=== PATIENT | male | born 1995 | race American Indian/Alaskan Native ===

== ENCOUNTER 2017-08-19 05:44 | Inpatient (IN) | payer OTHER ==
[2017-08-19 07:08] LABS: Alanine Aminotransferase 14 units/L (7-56); Albumin 4.8 g/dL (3.9-5); BUN/Creatinine Ratio 11; Blood Urea Nitrogen 9 mg/dL (9-20); Calcium 9.7 mg/dL (8.4-10.2); Hemolysis Index 8
[2017-08-19 08:03] LABS: Basophils # (Auto) 0.1 K/mm3 (0.0-0.1); Basophils % (Auto) 0.7 % (0.0-1.8); Eosinophils % (Auto) 0.1 % (0.0-4.3); Hematocrit 41.8 % (35.5-45.6); Hemoglobin 13.4 gm/dl (11.8-15.2); Lymphocytes # (Auto) 0.7 K/mm3 (1.2-5.4); Lymphocytes % (Auto) 6.1 % (13.4-35.0); Mean Corpuscular HGB Conc 32 % (32-34); Mean Corpuscular Hemoglobin 27 pg (28-32); Mean Corpuscular Volume 86 fl (84-94); Monocytes # (Auto) 0.5 K/mm3 (0.0-0.8); Monocytes % (Auto) 4.5 % (0.0-7.3); Platelet Count 260 K/mm3 (140-440); Red Blood Count 4.88 M/mm3 (3.65-5.03); Red Cell Distribution Width 12.5 % (13.2-15.2)
--- NOTE | 2017-08-19 11:11 | XRay Report ---
CHEST ONE VIEW INDICATION: Chest pain. COMPARISON: 07/23/2011. FINDINGS: Portable, single, frontal chest radiograph demonstrates normal cardiomediastinal silhouette. Clear lungs. Unremarkable bones. Extrinsic EKG leads. CONCLUSION: No acute disease in the chest. Thank you for the opportunity to participate in this patient's care.
[2017-08-19 11:25] LABS: Bilirubin,Urine NEG (Negative); Blood,Urine NEG (Negative); Color,Urine Yellow (Yellow); Mucus,Urine FEW /HPF; Protein,Urine <15 mg/dL mg/dL (Negative)
[2017-08-19 11:33] LABS: Amphetamine Screen,Urine PRESUMPTIVE NEGATIVE; Benzodiazepines Screen,Urine PRESUMPTIVE NEGATIVE; Cannabinoid Screen,Urine PRESUMPTIVE NEGATIVE; Methadone Screen,Urine PRESUMPTIVE NEGATIVE; Opiate Screen,Urine PRESUMPTIVE NEGATIVE
[2017-08-19 11:48] LABS: Cocaine Screen,Urine PRESUMPTIVE POSITIVE
--- NOTE | 2017-08-19 12:20 | Emergency Department Report ---
ED Chest Pain HPI - General Chief Complaint: Chest Pain Stated Complaint: CP Time Seen by Provider: 08/19/17 10:16 Source: family, EMS Mode of arrival: Wheelchair Limitations: Altered Mental Status - History of Present Illness MD Complaint: chest pain -: Sudden, This morning Onset: other (Started after snorting Cocaine.) Pain Location: substernal Pain Radiation: none Severity: severe Severity scale (0 -10): 8 Quality: heaviness, sharp Consistency: constant Improves With: nothing Worsens With: nothing re: denies: nausea, vomting Treatments Prior to Arrival: none Aspirin use within the Past 7 Days: (0) No - Related Data On Oral Contraceptives: No Allergies Allergy/AdvReac Type Severity Reaction Status Date / Time No Known Allergies Allergy Unverified 08/19/17 06:00 Heart Score - HEART Score History: Moderately suspicious EKG: Non-specific Age: < 45 Risk factors: No known risk factors Troponin: 1-3x normal limit HEART Score: 3 - Critical Actions Critical Actions: 0-3 pts:0.9-1.7%risk of adverse cardiac event.Candidate for discharge ED Review of Systems ROS: Stated complaint: CP Other details as noted in HPI Comment: All other systems reviewed and negative Constitutional: denies: chills, fever Eyes: denies: vision change ENT: denies: ear pain Respiratory: denies: cough, shortness of breath Cardiovascular: chest pain, palpitations Endocrine: no symptoms reported Gastrointestinal: denies: abdominal pain, nausea, vomiting, diarrhea Genitourinary: denies: urgency, dysuria, frequency Musculoskeletal: denies: back pain, joint swelling Skin: denies: rash, lesions, change in color Neurological: denies: headache, weakness, numbness, paresthesias Psychiatric: denies: anxiety, auditory hallucinations Hematological/Lymphatic: denies: easy bleeding, easy bruising ED Past Medical Hx - Past Medical History Previous Medical History?: Yes Additional medical history: pancreatitis - Surgical History Past Surgical History?: No - Social History Smoking Status: Never Smoker Substance Use Type: Cocaine ED Physical Exam - General Limitations: No Limitations General appearance: alert, in no apparent distress - Head Head exam: Present: atraumatic, normocephalic, normal inspection - Eye Eye exam: Present: normal appearance, PERRL, EOMI Pupils: Present: normal accommodation - ENT ENT exam: Present: normal exam, normal orophraynx, mucous membranes moist - Neck Neck exam: Present: normal inspection, full ROM. Absent: tenderness - Respiratory Respiratory exam: Present: normal lung sounds bilaterally. Absent: respiratory distress, wheezes, rhonchi - Cardiovascular Cardiovascular Exam: Present: regular rate, normal rhythm, normal heart sounds - GI/Abdominal GI/Abdominal exam: Present: soft, normal bowel sounds. Absent: tenderness, guarding - Extremities Exam Extremities exam: Present: normal inspection, full ROM, normal capillary refill - Back Exam Back exam: Present: normal inspection, full ROM. Absent: tenderness, vertebral tenderness - Neurological Exam Neurological exam: Present: alert, oriented X3, CN II-XII intact - Psychiatric Psychiatric exam: Present: normal affect, normal mood - Skin Skin exam: Present: warm, dry, intact, normal color. Absent: rash ED Course Vital Signs 08/19/17 08/19/17 08/19/17 05:52 05:56 06:00 Temperature 99.4 F Pulse Rate 125 H 105 H 85 Respiratory 30 H 22 11 L Rate Blood Pressure 168/85 140/78 Blood Pressure [Left] O2 Sat by Pulse 96 Oximetry 08/19/17 08/19/17 08/19/17 06:16 06:30 06:46 Temperature Pulse Rate 81 112 H 82 Respiratory 16 17 13 Rate Blood Pressure 143/78 143/78 143/78 Blood Pressure [Left] O2 Sat by Pulse Oximetry 08/19/17 08/19/17 08/19/17 07:00 07:15 07:30 Temperature Pulse Rate 78 74 79 Respiratory 9 L 11 L 11 L Rate Blood Pressure 118/62 105/64 92/56 Blood Pressure [Left] O2 Sat by Pulse 100 Oximetry 08/19/17 08/19/17 08/19/17 07:46 08:00 08:15 Temperature Pulse Rate 67 63 67 Respiratory 13 14 12 Rate Blood Pressure 126/54 122/68 117/64 Blood Pressure [Left] O2 Sat by Pulse 100 100 100 Oximetry 08/19/17 08/19/17 08/19/17 08:30 08:46 09:00 Temperature Pulse Rate 81 68 64 Respiratory 15 12 11 L Rate Blood Pressure 124/65 121/61 112/59 Blood Pressure [Left] O2 Sat by Pulse 99 100 100 Oximetry 08/19/17 08/19/17 08/19/17 09:15 09:30 09:46 Temperature Pulse Rate 68 63 84 Respiratory 13 11 L 10 L Rate Blood Pressure 113/55 118/56 120/49 Blood Pressure [Left] O2 Sat by Pulse 100 100 100 Oximetry 08/19/17 08/19/17 08/19/17 10:00 10:15 10:30 Temperature Pulse Rate 79 72 68 Respiratory 15 12 12 Rate Blood Pressure 127/61 124/54 104/59 Blood Pressure [Left] O2 Sat by Pulse 100 100 100 Oximetry 08/19/17 12:14 Temperature Pulse Rate 82 Respiratory 16 Rate Blood Pressure Blood Pressure 111/75 [Left] O2 Sat by Pulse 98 Oximetry - Reevaluation(s) Reevaluation #1: 08/19/17 13:08 I consulted the inspector agricultural commodities on-call Dr Greene He recommends admitting the patient to the hospitalist for further evaluation and management. He also said he will come and evaluate the patient in the emergency room. I consulted the hospitalist convex grinder operator Dr. Kerr. We will admit the patient to the hospital for further evaluation and management. PACO score - Paco Score Age > 65: (0) No Aspirin use within the Past 7 Days: (0) No 3 or more CAD Risk Factors: (1) Yes 2 or more Angina events in past 24 hrs: (0) No Known CAD with more than 50% Stenosis: (0) No Elevated Cardiac Markers: (0) No ST Deviation Greater than 0.5mm: (0) No PACO Score: 1 ED Medical Decision Making - Lab Data Result diagrams: 08/19/17 06:20 08/19/17 06:20 - EKG Data -: EKG Interpreted by Sd EKG shows normal: sinus rhythm Rate: normal - EKG Data When compared to previous EKG there are: previous EKG unavailable Interpretation: nonspecific ST-T wave vince, LVH, other (Early Repolarization.) - Radiology Data Radiology results: report reviewed, image reviewed - Medical Decision Making Cocaine Chest Pain. Critical care attestation.: If time is entered above; I have spent that time in minutes in the direct care of this critically ill patient, excluding procedure time. ED Disposition Clinical Impression: Cocaine abuse Chest pain Qualifiers: Chest pain type: unspecified Qualified Code(s): R07.9 - Chest pain, unspecified Disposition: DC-09 OP ADMIT IP TO THIS HOSP Is pt being admited?: Yes Does the pt Need Aspirin: Yes Condition: Stable Instructions: Chest Pain (ED) Referrals: PRIMARY CARE,MD [Primary Care Provider] - 3-5 Days
[2017-08-19] MEDS ORDERED: ASPIRIN PO ONE (12:21)
[2017-08-19] MEDS ORDERED: NACL 0.9% 1000 ML 1,000 ML IV ONE (12:53)
--- NOTE | 2017-08-19 13:13 | Consultation ---
History of Present Illness Consult date: 08/19/17 Requesting physician: DIOMEDES WAN Consult reason: chest pain History of present illness: The pt is a 22 YO male with a past medical history significant for acute pancreatitis and tobacco use. He is previously unknown to our practice. He presented with complaints of chest pain since 3AM this morning. He reports that he tried cocaine this AM (inhaled nasally) for the first time and immediately after inhaling the cocaine, he developed chest pain. He describes his chest pain as a constant left sided squeezing pain which was associated with bilateral hand numbness, bilateral feet numbness, SOB, nausea and a bout of vomiting. On evaluation, he reports that the chest pain is still present. He denies any palpitations, diaphoresis, dizziness or syncope. ECG demonstrates NSR with early repolarization, Jasiel are negative for AMI x 2 sets. Past History Past Medical History: other (acute pancreatitis as a child ) Past Surgical History: No surgical history Social history: lives with family, smoking (tobacco ), other (cocaine use). denies: alcohol abuse Family history: diabetes Medications and Allergies Allergies Allergy/AdvReac Type Severity Reaction Status Date / Time No Known Allergies Allergy Unverified 08/19/17 06:00 Home Medications Medication Instructions Recorded Confirmed Last Taken Type No Known Home Medications [No 08/19/17 08/19/17 Unknown History Reported Home Medications] Active Meds: Active Medications Sodium Chloride (Nacl 0.9% 1000 Ml) 1,000 mls @ 999 mls/hr IV BOLUS ONE Stop: 08/19/17 13:53 Review of Systems Constitutional: no weight loss, no weight gain, no fever, no chills, no sweats Ears, nose, mouth and throat: no ear pain, no nose pain, no sinus pressure, no sinus pain Cardiovascular: chest pain, shortness of breath, no orthopnea, no rapid/ irregular heart beat, no edema, no syncope, no lightheadedness, no high blood pressure, no leg edema, no decreased exercise tolerance Respiratory: shortness of breath, no cough, no congestion, no wheezing, no pain on inspiration Gastrointestinal: nausea, vomiting, no abdominal pain, no diarrhea, no constipation, no change in bowel habits Genitourinary Male: no dysuria, no hematuria, no flank pain, no discharge, no urinary frequency, no urinary hesitancy Musculoskeletal: no neck stiffness, no neck pain, no shooting arm pain, no arm numbness/tingling, no low back pain, no shooting leg pain Integumentary: no rash, no pruritis, no redness, no sores, no wounds Neurological: no head injury, no paralysis, no weakness, no parathesias, no tingling, no seizures, no syncope Psychiatric: no anxiety Endocrine: no cold intolerance, no heat intolerance Hematologic/Lymphatic: no easy bruising, no easy bleeding, no lymphadenopathy Allergic/Immunologic: no urticaria, no wheezing, no persistent infections Physical Examination Vital Signs Pulse Resp 125 H 30 H 08/19/17 05:52 08/19/17 05:52 General appearance: no acute distress HEENT: Positive: PERRL, Normocephaly, Mucus Membranes Moist Neck: Positive: neck supple, trachea midline Cardiac: Positive: Reg Rate and Rhythm, S1/S2 Lungs: Positive: clear to auscultation Neuro: Positive: Grossly Intact, Cranial Nerve 2-12 Intact Abdomen: Positive: Soft. Negative: Tender Skin: Positive: Clear. Negative: Rash, Wound Musculoskeletal: No Fluid Collection, No Pain, Normal Range of Motion Extremities: Absent: edema Results 08/19/17 06:20 08/19/17 06:20 Cardiac Enzymes 08/19/17 Range/Units 06:20 AST 15 (5-40) units/L CBC 08/19/17 Range/Units 06:20 WBC 10.8 (4.5-11.0) K/mm3 RBC 4.88 (3.65-5.03) M/mm3 Hgb 13.4 (11.8-15.2) gm/dl Hct 41.8 (35.5-45.6) % Plt Count 260 (140-440) K/mm3 Lymph # 0.7 L (1.2-5.4) K/mm3 [place] # 0.5 (0.0-0.8) K/mm3 Eos # 0.0 (0.0-0.4) K/mm3 Baso # 0.1 (0.0-0.1) K/mm3 Comprehensive Metabolic Panel 08/19/17 Range/Units 06:20 Sodium 138 (137-145) mmol/L Potassium 3.9 (3.6-5.0) mmol/L Chloride 98.1 (98-107) mmol/L Carbon Dioxide 22 (22-30) mmol/L BUN 9 (9-20) mg/dL Creatinine 0.8 (0.8-1.5) mg/dL Glucose 103 H (75-100) mg/dL Calcium 9.7 (8.4-10.2) mg/dL AST 15 (5-40) units/L ALT 14 (7-56) units/L Alkaline Phosphatase 70 (35-129) units/L Total Protein 7.1 (6.3-8.2) g/dL Albumin 4.8 (3.9-5) g/dL - Imaging and Cardiology Echo: pending EKG: report reviewed, image reviewed EKG interpretations - Telemetry EKG Rhythm: Sinus Rhythm - EKG Sinus rhythms and dysrhythmias: sinus rhythm Repolarization changes or abnormalities: early repolarization (normal variant) Assessment and Plan Assessment: Chest pain, atypical / ? coronary vasospasm secondary to cocaine use - Jasiel negative for AMI Abnormal ECG - early repolarization Tobacco use / cocaine use - cessation encouraged Plan: Initiate low dose cardizem BID. Hold for HR <60 and/or SBP <100. Obtain echo. Cont to monitor on telemetry. Assessment and plan reviewed with pt and pt's mother. The patient has been seen in conjunction with Dr. Espitia who agrees with the assessment and plan of care.
[2017-08-19] MEDS: CARDIZEM PO SCH ×2 (18:59→22:44)
--- NOTE | 2017-08-19 20:17 | History and Physical Report ---
History of Present Illness Date of examination: 08/19/17 Date of admission: 08/19/17 13:10 Chief complaint: Chief complaint: Chest pain since a.m. History of present illness: History of Present Illness: The pt is a 22 YO male with a past medical history significant for acute pancreatitis and tobacco use. He is previously unknown to our practice. He presented with complaints of chest pain since 3AM this morning. He reports that he tried cocaine this AM (inhaled nasally) for the first time and immediately after inhaling the cocaine, he developed chest pain. He describes his chest pain as a constant left sided squeezing pain which was associated with bilateral hand numbness, bilateral feet numbness, SOB, nausea and a bout of vomiting. On evaluation, he reports that the chest pain is still present. He denies any palpitations, diaphoresis, dizziness or syncope. ECG demonstrates NSR with early repolarization, Jasiel are negative for AMI x 2 sets. Past History Past Medical History: other (acute pancreatitis as a child ) Past Surgical History: No surgical history Social history: lives with family, smoking (tobacco ), other (cocaine use). denies: alcohol abuse Family history: diabetes Medications and Allergies Allergies Allergy/AdvReac Type Severity Reaction Status Date / Time No Known Allergies Allergy Unverified 08/19/17 06:00 Home Medications Medication Instructions Recorded Confirmed Last Taken Type No Known Home Medications [No 08/19/17 08/19/17 Unknown History Reported Home Medications] Active Meds: Active Medications Sodium Chloride (Nacl 0.9% 1000 Ml) 1,000 mls @ 999 mls/hr IV BOLUS ONE Stop: 08/19/17 13:53 Review of Systems Constitutional: no weight loss, no weight gain, no fever, no chills, no sweats Ears, nose, mouth and throat: no ear pain, no nose pain, no sinus pressure, no sinus pain Cardiovascular: chest pain, shortness of breath, no orthopnea, no rapid/ irregular heart beat, no edema, no syncope, no lightheadedness, no high blood pressure, no leg edema, no decreased exercise tolerance Respiratory: shortness of breath, no cough, no congestion, no wheezing, no pain on inspiration Gastrointestinal: nausea, vomiting, no abdominal pain, no diarrhea, no constipation, no change in bowel habits Genitourinary Male: no dysuria, no hematuria, no flank pain, no discharge, no urinary frequency, no urinary hesitancy Musculoskeletal: no neck stiffness, no neck pain, no shooting arm pain, no arm numbness/tingling, no low back pain, no shooting leg pain Integumentary: no rash, no pruritis, no redness, no sores, no wounds Neurological: no head injury, no paralysis, no weakness, no parathesias, no tingling, no seizures, no syncope Psychiatric: no anxiety Endocrine: no cold intolerance, no heat intolerance Hematologic/Lymphatic: no easy bruising, no easy bleeding, no lymphadenopathy Allergic/Immunologic: no urticaria, no wheezing, no persistent infections Past History Past Medical History: other (acute pancreatitis as a child ) Past Surgical History: No surgical history Social history: lives with family, smoking (tobacco ), other (cocaine use). denies: alcohol abuse Family history: diabetes Medications and Allergies Allergies Allergy/AdvReac Type Severity Reaction Status Date / Time No Known Allergies Allergy Unverified 08/19/17 06:00 Home Medications Medication Instructions Recorded Confirmed Last Taken Type No Known Home Medications [No 08/19/17 08/19/17 Unknown History Reported Home Medications] Active Meds: Active Medications Diltiazem HCl (Cardizem) 30 mg PO BID PEYTON Last Admin: 08/19/17 18:59 Dose: 30 mg Influenza Virus Vaccine Quadrival (Fluarix Quad [id number](36 Mos+) 0.5 ml IM .ONCE ONE Stop: 08/20/17 12:01 Exam - Physical Exam Narrative exam: Lying in bed comfortably - Constitutional Vitals: Temp Pulse Resp BP Pulse Ox 98.6 F 86 18 131/71 98 08/19/17 15:11 08/19/17 18:59 08/19/17 15:11 08/19/17 18:59 08/19/17 15:11 General appearance: Present: no acute distress, well-nourished - EENT Eyes: Present: PERRL ENT: hearing intact, clear oral mucosa - Neck Neck: Present: supple, normal ROM - Respiratory Respiratory effort: normal Respiratory: bilateral: CTA - Cardiovascular Heart rate: 78 Rhythm: regular Heart Sounds: Present: S1 & S2. Absent: rub, click - Extremities Extremities: no ischemia, pulses intact, pulses symmetrical, No edema Peripheral Pulses: within normal limits - Abdominal General gastrointestinal: Present: soft, non-tender, non-distended, normal bowel sounds Male genitourinary: Present: normal - Rectal Rectal Exam: deferred - Integumentary Integumentary: Present: clear, warm, dry - Musculoskeletal Musculoskeletal: gait normal, strength equal bilaterally - Psychiatric Psychiatric: appropriate mood/affect, intact judgment & insight - Neurologic Neurologic: CNII-XII intact, moves all extremities - Allied Health Allied health notes reviewed: nursing, case management Results - Labs CBC & Chem 7: 08/19/17 06:20 08/19/17 06:20 Labs: Laboratory Last Values WBC 10.8 K/mm3 (4.5-11.0) 08/19/17 06:20 RBC 4.88 M/mm3 (3.65-5.03) 08/19/17 06:20 Hgb 13.4 gm/dl (11.8-15.2) 08/19/17 06:20 Hct 41.8 % (35.5-45.6) 08/19/17 06:20 MCV 86 fl (84-94) 08/19/17 06:20 MCH 27 pg (28-32) L 08/19/17 06:20 MCHC 32 % (32-34) 08/19/17 06:20 RDW 12.5 % (13.2-15.2) L 08/19/17 06:20 Plt Count 260 K/mm3 (140-440) 08/19/17 06:20 Lymph % (Auto) 6.1 % (13.4-35.0) L 08/19/17 06:20 [place] % (Auto) 4.5 % (0.0-7.3) 08/19/17 06:20 Eos % (Auto) 0.1 % (0.0-4.3) 08/19/17 06:20 Baso % (Auto) 0.7 % (0.0-1.8) 08/19/17 06:20 Lymph # 0.7 K/mm3 (1.2-5.4) L 08/19/17 06:20 [place] # 0.5 K/mm3 (0.0-0.8) 08/19/17 06:20 Eos # 0.0 K/mm3 (0.0-0.4) 08/19/17 06:20 Baso # 0.1 K/mm3 (0.0-0.1) 08/19/17 06:20 Seg Neutrophils % 88.6 % (40.0-70.0) H 08/19/17 06:20 Seg Neutrophils # 9.6 K/mm3 (1.8-7.7) H 08/19/17 06:20 Sodium 138 mmol/L (137-145) 08/19/17 06:20 Potassium 3.9 mmol/L (3.6-5.0) 08/19/17 06:20 Chloride 98.1 mmol/L (98-107) 08/19/17 06:20 Carbon Dioxide 22 mmol/L (22-30) 08/19/17 06:20 Anion Gap 22 mmol/L 08/19/17 06:20 BUN 9 mg/dL (9-20) 08/19/17 06:20 Creatinine 0.8 mg/dL (0.8-1.5) 08/19/17 06:20 Estimated GFR > 60 ml/min 08/19/17 06:20 BUN/Creatinine Ratio 11 % 08/19/17 06:20 Glucose 103 mg/dL (75-100) H 08/19/17 06:20 Calcium 9.7 mg/dL (8.4-10.2) 08/19/17 06:20 Total Bilirubin 1.80 mg/dL (0.1-1.2) H 08/19/17 06:20 AST 15 units/L (5-40) 08/19/17 06:20 ALT 14 units/L (7-56) 08/19/17 06:20 Alkaline Phosphatase 70 units/L (35-129) 08/19/17 06:20 Troponin T < 0.010 ng/mL (0.00-0.029) 08/19/17 11:05 Total Protein 7.1 g/dL (6.3-8.2) 08/19/17 06:20 Albumin 4.8 g/dL (3.9-5) 08/19/17 06:20 Albumin/Globulin Ratio 2.1 % 08/19/17 06:20 Urine Color Yellow (Yellow) 08/19/17 11:00 Urine Turbidity Clear (Clear) 08/19/17 11:00 Urine pH 6.0 (5.0-7.0) 08/19/17 11:00 Ur Specific [place] 1.017 (1.003-1.030) 08/19/17 11:00 Urine Protein <15 mg/dl mg/dL (Negative) 08/19/17 11:00 Urine Glucose (UA) Neg mg/dL (Negative) 08/19/17 11:00 Urine Ketones 20 mg/dL (Negative) 08/19/17 11:00 Urine Blood Neg (Negative) 08/19/17 11:00 Urine Nitrite Neg (Negative) 08/19/17 11:00 Urine Bilirubin Neg (Negative) 08/19/17 11:00 Urine Urobilinogen 2.0 mg/dL (<2.0) 08/19/17 11:00 Ur Leukocyte Esterase Neg (Negative) 08/19/17 11:00 Urine WBC (Auto) 1.0 /HPF (0.0-6.0) 08/19/17 11:00 Urine RBC (Auto) 2.0 /HPF (0.0-6.0) 08/19/17 11:00 Urine Mucus Few /HPF 08/19/17 11:00 Urine Opiates Screen Presumptive negative 08/19/17 11:00 Urine Methadone Screen Presumptive negative 08/19/17 11:00 Ur Barbiturates Screen Presumptive negative 08/19/17 11:00 Ur Phencyclidine Scrn Presumptive negative 08/19/17 11:00 Ur Amphetamines Screen Presumptive negative 08/19/17 11:00 U Benzodiazepines Scrn Presumptive negative 08/19/17 11:00 Urine Cocaine Screen Presumptive positive 08/19/17 11:00 U Marijuana (THC) Screen Presumptive negative 08/19/17 11:00 Drugs of Abuse Note Disclamer 08/19/17 11:00 Short CBC 08/19/17 Range/Units 06:20 WBC 10.8 (4.5-11.0) K/mm3 Hgb 13.4 (11.8-15.2) gm/dl Hct 41.8 (35.5-45.6) % Plt Count 260 (140-440) K/mm3 BMP 08/19/17 06:20 Sodium 138 Potassium 3.9 Chloride 98.1 Carbon Dioxide 22 BUN 9 Creatinine 0.8 Glucose 103 H Calcium 9.7 Cardiac Enzymes 08/19/17 08/19/17 Range/Units 06:20 11:05 Troponin T < 0.010 < 0.010 (0.00-0.029) ng/mL Liver Function 08/19/17 Range/Units 06:20 Total Bilirubin 1.80 H (0.1-1.2) mg/dL AST 15 (5-40) units/L ALT 14 (7-56) units/L Alkaline Phosphatase 70 (35-129) units/L Albumin 4.8 (3.9-5) g/dL Urine 08/19/17 Range/Units 11:00 Urine Color Yellow (Yellow) Urine pH 6.0 (5.0-7.0) Ur Specific [place] 1.017 (1.003-1.030) Urine Protein <15 mg/dl (Negative) mg/dL Urine Glucose (UA) Neg (Negative) mg/dL - Imaging and Cardiology EKG: report reviewed (normal sinus rhythm 70/m) Assessment and Plan Advance Directives: Yes (full code) VTE prophylaxis?: Chemical Plan of care discussed with patient/family: Yes - Patient Problems (1) Chest pain Current Visit: Yes Status: Acute Qualifiers: Chest pain type: unspecified Qualified Code(s): R07.9 - Chest pain, unspecified Plan to address problem: Serial cardiac enzymes and exercise stress test Secondary to vasospasm Patient to avoid cocaine in future (2) Cocaine abuse Current Visit: Yes Status: Acute Plan to address problem: Probable vasospasm--secondary to vasospasm Patient counseled to avoid cocaine in future (3) DVT prophylaxis Current Visit: Yes Status: Acute Plan to address problem: Heparin subcutaneously GI prophylaxis with famotidine
[2017-08-19] MEDS ORDERED: MORPHINE IV PRN (20:24)
[2017-08-19] MEDS ORDERED: PERCOCET 5/325 PO PRN (20:24)
[2017-08-19] MEDS ORDERED: SODIUM CHLORIDE FLUSH SYRINGE 10 ML IV PRN (20:24)
[2017-08-19] MEDS ORDERED: TYLENOL PO PRN (20:24)
[2017-08-19] MEDS ORDERED: ZOFRAN IV PRN (20:24)
[2017-08-19] MEDS ORDERED: AMBIEN PO PRN (20:24)
[2017-08-19] MEDS ORDERED: D5NS 1,000 ML IV SCH (21:00)
[2017-08-19] MEDS: PEPCID PO SCH (22:43)
[2017-08-19] MEDS: SODIUM CHLORIDE FLUSH SYRINGE 10 ML IV SCH (22:44)
[2017-08-20 06:20] LABS: BUN/Creatinine Ratio 11; Blood Urea Nitrogen 9 mg/dL (9-20); Calcium 8.4 mg/dL (8.4-10.2); Hemolysis Index 3
[2017-08-20 06:52] LABS: Hematocrit 39.6 % (35.5-45.6); Hemoglobin 12.6 gm/dl (11.8-15.2); Lymphocytes % (Auto) 39.6 % (13.4-35.0); Mean Corpuscular HGB Conc 32 % (32-34); Mean Corpuscular Hemoglobin 28 pg (28-32); Mean Corpuscular Volume 86 fl (84-94); Mean Platelet Volume 8.4 fl (6-12); Platelet Count 219 K/mm3 (140-440); Red Blood Count 4.59 M/mm3 (3.65-5.03); Red Cell Distribution Width 12.8 % (13.2-15.2)
[2017-08-20 06:53] LABS: Basophils # (Auto) 0.1 K/mm3 (0.0-0.1); Basophils % (Auto) 1.7 % (0.0-1.8); Eosinophils # (Auto) 0.4 K/mm3 (0.0-0.4); Eosinophils % (Auto) 6.6 % (0.0-4.3); Lymphocytes # (Auto) 2.2 K/mm3 (1.2-5.4); Monocytes # (Auto) 0.7 K/mm3 (0.0-0.8)
[2017-08-20] MEDS ORDERED: LEXISCAN IV ONE (08:24)
[2017-08-20] MEDS: PEPCID PO SCH (09:51)
[2017-08-20] MEDS: CARDIZEM PO SCH (09:51)
[2017-08-20] MEDS: SODIUM CHLORIDE FLUSH SYRINGE 10 ML IV SCH (09:53)
[2017-08-20] MEDS ORDERED: Fluarix Quad 2017-2018(36 MOS+ IM ONE (12:00)
--- NOTE | 2017-08-20 14:42 | Progress Note ---
Assessment and Plan He appears stable from a cardiac standpoint to be discharged home. He does not require any cardiac medications. However, he needs to avoid cocaine use. - Patient Problems (1) Chest pain Current Visit: Yes Status: Resolved Qualifiers: Chest pain type: other chest pain Qualified Code(s): R07.89 - Other chest pain; R07.8 - Other chest pain (2) Cocaine abuse Current Visit: Yes Status: Acute Subjective Date of service: 08/20/17 Principal diagnosis: Cocaine induced CP Interval history: He feels fine this morning without any chest pain. He underwent a treadmill exercise stress test which was negative for ischemia without any chest pain. Echocardiogram showed normal LV systolic function with no significant valvular abnormalities. Objective Vital Signs Temp Pulse Resp BP Pulse Ox 08/20/17 13:30 99 08/20/17 09:51 115/68 08/20/17 08:39 98.5 F 69 18 115/68 99 08/20/17 04:30 98.2 F 57 L 16 121/48 97 08/19/17 23:49 61 08/19/17 23:19 98.3 F 80 18 117/57 98 08/19/17 22:44 61 122/87 08/19/17 21:03 20 08/19/17 20:14 98 08/19/17 19:33 98.4 F 69 16 122/45 96 08/19/17 18:59 86 131/71 08/19/17 15:11 98.6 F 86 18 131/71 98 08/19/17 14:51 97 08/19/17 14:42 121/54 - Physical Examination General: No Apparent Distress HEENT: Positive: PERRL, Normocephaly, Mucus Membranes Moist Neck: Positive: neck supple, trachea midline Cardiac: Positive: Reg Rate and Rhythm, S1/S2 Lungs: Positive: clear to auscultation Neuro: Positive: Grossly Intact Abdomen: Positive: Soft, Active Bowel Sounds. Negative: Tender Skin: Positive: Clear. Negative: Rash Musculoskeletal: Normal Range of Motion Extremities: Present: normal. Absent: edema - Labs and Meds CBC 08/20/17 Range/Units 05:42 WBC 5.5 (4.5-11.0) K/mm3 RBC 4.59 (3.65-5.03) M/mm3 Hgb 12.6 (11.8-15.2) gm/dl Hct 39.6 (35.5-45.6) % Plt Count 219 (140-440) K/mm3 Lymph # 2.2 (1.2-5.4) K/mm3 [place] # 0.7 (0.0-0.8) K/mm3 Eos # 0.4 (0.0-0.4) K/mm3 Baso # 0.1 (0.0-0.1) K/mm3 Comprehensive Metabolic Panel 08/20/17 Range/Units 05:42 Sodium 141 (137-145) mmol/L Potassium 3.8 (3.6-5.0) mmol/L Chloride 105.7 (98-107) mmol/L Carbon Dioxide 25 (22-30) mmol/L BUN 9 (9-20) mg/dL Creatinine 0.8 (0.8-1.5) mg/dL Glucose 106 H (75-100) mg/dL Calcium 8.4 (8.4-10.2) mg/dL - Imaging and Cardiology Echo: image reviewed - Telemetry EKG Rhythm: Sinus Rhythm - EKG Sinus rhythms and dysrhythmias: sinus rhythm Repolarization changes or abnormalities: early repolarization (normal variant)
--- NOTE | 2017-08-20 15:03 | Discharge Summary ---
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
[2017-08-20 15:25] VITALS: BP 120/66
== END 2017-08-20 16:27 | disposition home or self-care (01) | DRG 313 ==
LOC: ED 05:44 → 4A 13:10
PROVIDERS: ADMIT Internal Medicine; ATTEND Internal Medicine
DX: R07.89 Other chest pain (principal); Z83.3 Family history of diabetes mellitus; F17.200 Nicotine dependence, unspecified, uncomplicated; Z71.51 Drug abuse counseling and surveillance of drug abuser; Z71.6 Tobacco abuse counseling; F14.188 Cocaine abuse with other cocaine-induced disorder
CPT/HCPCS: 36415; 71045; 80048; 80053; 80307; 81001; 84484; 85025; 90686; 93005; 93010; 93017; 93306; J2785; J7030; J7042

== ENCOUNTER 2017-08-20 21:23 | Emergency (ER) | payer SELFPAY ==
[2017-08-20] MEDS ORDERED: ASPIRIN PO ONE (21:42)
[2017-08-20] MEDS ORDERED: NACL 0.9% 1000 ML 1,000 ML IV ONE (21:57)
[2017-08-20] MEDS ORDERED: BENADRYL IV ONE (22:04)
--- NOTE | 2017-08-20 22:06 | Emergency Department Report ---
ED Chest Pain HPI - General Chief Complaint: Chest Pain Stated Complaint: CHEST PAIN Time Seen by Provider: 08/20/17 21:57 Source: patient, family, old records reviewed Mode of arrival: Wheelchair Limitations: No Limitations - History of Present Illness Initial Comments: 22 yo male with a past medical history of pancreatitis and previous cocaine use presents to hospital complaining of sudden onset of left-sided squeezing chest pain that happened about 30 minutes prior to arrival. Patient was under stress when pain started. He states there was some discourse/arguments in his his family. During episode he began having squeezing chest pain left-sided chest pain rated 8/10 in intensity, palpitations, shortness of breath. Positive left arm paresthesias and rapid breathing also reported. Patient also had several episodes of vomiting. He did admit to little wine intake earlier patient has a history of pancreatitis with unknown cause. He was recently here admitted here yesterday and discharged earlier today for chest pain related to cocaine use. Apparently that was patient's first use of cocaine. Previous medical records reviewed and echocardiogram and stress test during admission were normal. Patient was discharged without any cardiac medications. Patient denies history of PE status DVT, calf tenderness, edema, or recent travel. - Related Data Previous Rx's Medication Instructions Recorded Last Taken Type Ibuprofen [Motrin] 600 mg PO Q8H PRN #30 tablet 08/20/17 Unknown Rx hydrOXYzine PAMOATE [Vistaril] 50 mg PO Q6HR PRN #20 capsule 08/20/17 Unknown Rx Allergies Allergy/AdvReac Type Severity Reaction Status Date / Time No Known Allergies Allergy Unverified 08/19/17 06:00 Heart Score - HEART Score History: Slightly suspicious EKG: Normal Age: < 45 Risk factors: 1-2 risk factors (smoker) Troponin: < normal limit HEART Score: 1 ED Review of Systems ROS: Stated complaint: CHEST PAIN Other details as noted in HPI Comment: All other systems reviewed and negative ED Past Medical Hx - Past Medical History Previous Medical History?: Yes Hx Congestive Heart Failure: No Hx Diabetes: No Hx Asthma: No Hx COPD: No Additional medical history: pancreatitis - Surgical History Past Surgical History?: No - Social History Smoking Status: Current Every Day Smoker - Medications Home Medications: Home Medications Medication Instructions Recorded Confirmed Last Taken Type Ibuprofen [Motrin] 600 mg PO Q8H PRN #30 tablet 08/20/17 Unknown Rx hydrOXYzine PAMOATE [Vistaril] 50 mg PO Q6HR PRN #20 capsule 08/20/17 Unknown Rx ED Physical Exam - General Limitations: No Limitations - Other Other exam information: General: No limitations, patient is alert in no acute distress Head exam: Atraumatic, normocephalic Eyes exam: Normal appearance, pupils equal reactive to light, extraocular movements intact ENT: Moist mucous membrane, normal oropharynx Neck exam: Normal inspection, full range of motion, no meningismus nontender Respiratory exam: Clear to auscultation bilateral, no wheezes, rales, crackles Cardiovascular: Normal rate and rhythm, normal heart sounds, chest wall nontender Abdomen: Soft, nondistended, and nontender, with normal bowel sounds, no rebound, or guarding Extremity: Full range of motion normal inspection no deformity, no calf tenderness or edema Back: Normal Inspection, full range of motion, no tenderness Neurologic: Alert, oriented x3, cranial nerves intact, no motor or sensory deficit Psychiatric: normal affect, normal mood Skin: Warm, dry, intact ED Course Vital Signs 08/20/17 08/20/17 08/20/17 21:26 22:00 22:10 Temperature 98.4 F 99.2 F Pulse Rate 81 81 78 Respiratory 16 15 18 Rate Blood Pressure 76/55 139/76 Blood Pressure 139/76 [Right] O2 Sat by Pulse 100 97 98 Oximetry 08/20/17 08/20/17 08/20/17 22:16 22:30 22:46 Temperature Pulse Rate 68 68 59 L Respiratory 17 15 15 Rate Blood Pressure 112/76 137/80 121/80 Blood Pressure [Right] O2 Sat by Pulse 99 97 93 Oximetry 08/20/17 23:00 Temperature Pulse Rate 62 Respiratory 18 Rate Blood Pressure 130/89 Blood Pressure [Right] O2 Sat by Pulse 100 Oximetry - Reevaluation(s) Reevaluation #1: 08/20/17 22:08 Initial triage BP was in the 70s per repeat BP without any intervention showed a systolic pressure of 130's so I question the validity of the initial blood pressure. 1 L normal saline initiated 08/20/17 23:45 sbp remained normal without repeat hypotension PACO score - Paco Score Age > 65: (0) No Aspirin use within the Past 7 Days: (0) No 3 or more CAD Risk Factors: (0) No 2 or more Angina events in past 24 hrs: (0) No Known CAD with more than 50% Stenosis: (0) No Elevated Cardiac Markers: (0) No ST Deviation Greater than 0.5mm: (0) No PACO Score: 0 ED Medical Decision Making - Lab Data Result diagrams: 08/20/17 21:55 08/20/17 21:55 Lab Results 08/20/17 08/20/17 08/20/17 Range/Units 21:55 21:55 21:55 WBC 7.4 (4.5-11.0) K/mm3 RBC 5.02 (3.65-5.03) M/mm3 Hgb 14.2 (11.8-15.2) gm/dl Hct 42.9 (35.5-45.6) % MCV 86 (84-94) fl MCH 28 (28-32) pg MCHC 33 (32-34) % RDW 12.7 L (13.2-15.2) % Plt Count 267 (140-440) K/mm3 Lymph % (Auto) 23.2 (13.4-35.0) % [place] % (Auto) 7.8 H (0.0-7.3) % Eos % (Auto) 4.3 (0.0-4.3) % Baso % (Auto) 1.0 (0.0-1.8) % Lymph # 1.7 (1.2-5.4) K/mm3 [place] # 0.6 (0.0-0.8) K/mm3 Eos # 0.3 (0.0-0.4) K/mm3 Baso # 0.1 (0.0-0.1) K/mm3 Add Manual Diff Complete Seg Neutrophils % 63.7 (40.0-70.0) % Seg Neutrophils # 4.7 (1.8-7.7) K/mm3 D-Dimer (0-234) ng/mlDDU Sodium 140 (137-145) mmol/L Potassium 4.3 (3.6-5.0) mmol/L Chloride 99.8 (98-107) mmol/L Carbon Dioxide 27 (22-30) mmol/L Anion Gap 18 mmol/L BUN 6 L (9-20) mg/dL Creatinine 0.8 (0.8-1.5) mg/dL Estimated GFR > 60 ml/min BUN/Creatinine Ratio 8 % Glucose 83 (75-100) mg/dL Calcium 9.8 D (8.4-10.2) mg/dL Total Creatine Kinase (55-170) units/L CK-MB (CK-2) (0.0-4.0) ng/mL CK-MB (CK-2) Rel Index (0-4) Troponin T < 0.010 (0.00-0.029) ng/mL Urine Color (Yellow) Urine Turbidity (Clear) Urine pH (5.0-7.0) Ur Specific [place] (1.003-1.030) Urine Protein (Negative) mg/dL Urine Glucose (UA) (Negative) mg/dL Urine Ketones (Negative) mg/dL Urine Blood (Negative) Urine Nitrite (Negative) Urine Bilirubin (Negative) Urine Urobilinogen (<2.0) mg/dL Ur Leukocyte Esterase (Negative) Urine WBC (Auto) (0.0-6.0) /HPF Urine RBC (Auto) (0.0-6.0) /HPF U Epithel Cells (Auto) (0-13.0) /HPF Urine Mucus /HPF Salicylates < 0.3 L (2.8-20.0) mg/dL Urine Opiates Screen Urine Methadone Screen Acetaminophen (10.0-30.0) ug/mL Ur Barbiturates Screen Ur Phencyclidine Scrn Ur Amphetamines Screen U Benzodiazepines Scrn U Marijuana (THC) Screen Plasma/Serum Alcohol (0-0.07) % 08/20/17 08/20/17 08/20/17 Range/Units 21:55 21:55 21:58 WBC (4.5-11.0) K/mm3 RBC (3.65-5.03) M/mm3 Hgb (11.8-15.2) gm/dl Hct (35.5-45.6) % MCV (84-94) fl MCH (28-32) pg MCHC (32-34) % RDW (13.2-15.2) % Plt Count (140-440) K/mm3 Lymph % (Auto) (13.4-35.0) % [place] % (Auto) (0.0-7.3) % Eos % (Auto) (0.0-4.3) % Baso % (Auto) (0.0-1.8) % Lymph # (1.2-5.4) K/mm3 [place] # (0.0-0.8) K/mm3 Eos # (0.0-0.4) K/mm3 Baso # (0.0-0.1) K/mm3 Add Manual Diff Seg Neutrophils % (40.0-70.0) % Seg Neutrophils # (1.8-7.7) K/mm3 D-Dimer (0-234) ng/mlDDU Sodium (137-145) mmol/L Potassium (3.6-5.0) mmol/L Chloride (98-107) mmol/L Carbon Dioxide (22-30) mmol/L Anion Gap mmol/L BUN (9-20) mg/dL Creatinine (0.8-1.5) mg/dL Estimated GFR ml/min BUN/Creatinine Ratio % Glucose (75-100) mg/dL Calcium (8.4-10.2) mg/dL Total Creatine Kinase 184 H (55-170) units/L CK-MB (CK-2) 1.6 (0.0-4.0) ng/mL CK-MB (CK-2) Rel Index 0.8 (0-4) Troponin T (0.00-0.029) ng/mL Urine Color (Yellow) Urine Turbidity (Clear) Urine pH (5.0-7.0) Ur Specific [place] (1.003-1.030) Urine Protein (Negative) mg/dL Urine Glucose (UA) (Negative) mg/dL Urine Ketones (Negative) mg/dL Urine Blood (Negative) Urine Nitrite (Negative) Urine Bilirubin (Negative) Urine Urobilinogen (<2.0) mg/dL Ur Leukocyte Esterase (Negative) Urine WBC (Auto) (0.0-6.0) /HPF Urine RBC (Auto) (0.0-6.0) /HPF U Epithel Cells (Auto) (0-13.0) /HPF Urine Mucus /HPF Salicylates (2.8-20.0) mg/dL Urine Opiates Screen Urine Methadone Screen Acetaminophen < 5.0 L (10.0-30.0) ug/mL Ur Barbiturates Screen Ur Phencyclidine Scrn Ur Amphetamines Screen U Benzodiazepines Scrn U Marijuana (THC) Screen Plasma/Serum Alcohol < 0.01 (0-0.07) % 08/20/17 08/20/17 08/20/17 Range/Units 22:11 22:57 22:57 WBC (4.5-11.0) K/mm3 RBC (3.65-5.03) M/mm3 Hgb (11.8-15.2) gm/dl Hct (35.5-45.6) % MCV (84-94) fl MCH (28-32) pg MCHC (32-34) % RDW (13.2-15.2) % Plt Count (140-440) K/mm3 Lymph % (Auto) (13.4-35.0) % [place] % (Auto) (0.0-7.3) % Eos % (Auto) (0.0-4.3) % Baso % (Auto) (0.0-1.8) % Lymph # (1.2-5.4) K/mm3 [place] # (0.0-0.8) K/mm3 Eos # (0.0-0.4) K/mm3 Baso # (0.0-0.1) K/mm3 Add Manual Diff Seg Neutrophils % (40.0-70.0) % Seg Neutrophils # (1.8-7.7) K/mm3 D-Dimer 137.24 (0-234) ng/mlDDU Sodium (137-145) mmol/L Potassium (3.6-5.0) mmol/L Chloride (98-107) mmol/L Carbon Dioxide (22-30) mmol/L Anion Gap mmol/L BUN (9-20) mg/dL Creatinine (0.8-1.5) mg/dL Estimated GFR ml/min BUN/Creatinine Ratio % Glucose (75-100) mg/dL Calcium (8.4-10.2) mg/dL Total Creatine Kinase (55-170) units/L CK-MB (CK-2) (0.0-4.0) ng/mL CK-MB (CK-2) Rel Index (0-4) Troponin T (0.00-0.029) ng/mL Urine Color Yellow (Yellow) Urine Turbidity Clear (Clear) Urine pH 7.0 (5.0-7.0) Ur Specific [place] 1.017 (1.003-1.030) Urine Protein <15 mg/dl (Negative) mg/dL Urine Glucose (UA) Neg (Negative) mg/dL Urine Ketones Neg (Negative) mg/dL Urine Blood Neg (Negative) Urine Nitrite Neg (Negative) Urine Bilirubin Neg (Negative) Urine Urobilinogen 2.0 (<2.0) mg/dL Ur Leukocyte Esterase Neg (Negative) Urine WBC (Auto) 2.0 (0.0-6.0) /HPF Urine RBC (Auto) 1.0 (0.0-6.0) /HPF U Epithel Cells (Auto) < 1.0 (0-13.0) /HPF Urine Mucus Few /HPF Salicylates (2.8-20.0) mg/dL Urine Opiates Screen Presumptive negative Urine Methadone Screen Presumptive negative Acetaminophen (10.0-30.0) ug/mL Ur Barbiturates Screen Presumptive negative Ur Phencyclidine Scrn Presumptive negative Ur Amphetamines Screen Presumptive negative U Benzodiazepines Scrn Presumptive negative U Marijuana (THC) Screen Presumptive negative Plasma/Serum Alcohol (0-0.07) % - EKG Data -: EKG Interpreted by [place] EKG shows normal: sinus rhythm, axis (qrs 81), QRS complexes (qrsd 94), ST-T waves (early repol) Rate: normal (81) - EKG Data When compared to previous EKG there are: previous EKG unavailable - Medical Decision Making Patient's pain is atypical. Patient had a recent negative cardiac workup has no significant cardiac risk factors. Symptoms seem to be anxiety related and better after Benadryl, Toradol, and normal saline. Repeat discharge with outpatient follow-up. - Differential Diagnosis anxiety, PE, dysrhythmia, vasospasm Critical Care Time: No Critical care attestation.: If time is entered above; I have spent that time in minutes in the direct care of this critically ill patient, excluding procedure time. ED Disposition Clinical Impression: Anxiety, Cocaine abuse, Atypical chest pain Disposition: DC-01 TO HOME OR SELFCARE Is pt being admited?: No Does the pt Need Aspirin: No Condition: Stable Instructions: Chest Pain (ED), Anxiety (ED), Cocaine Abuse (ED) Additional Instructions: Taken medication as needed. Follow-up with a primary care doctor/clinic and mental health clinic for further evaluation and treatment. Prescriptions: hydrOXYzine PAMOATE [Vistaril] 50 mg PO Q6HR PRN #20 capsule PRN Reason: Anxiety Ibuprofen [Motrin] 600 mg PO Q8H PRN #30 tablet PRN Reason: Pain Referrals: [facility] [Provider Group] - 3-5 Days (Primary care clinic) [facility] [Outside] - 3-5 Days (Mental health clinic) FREDDY TRAN MD [Staff Physician] - 3-5 Days (Primary care doctor) Time of Disposition: 23:50
[2017-08-20 22:07] LABS: Basophils # (Auto) 0.1 K/mm3 (0.0-0.1); Eosinophils # (Auto) 0.3 K/mm3 (0.0-0.4); Eosinophils % (Auto) 4.3 % (0.0-4.3); Hematocrit 42.9 % (35.5-45.6); Hemoglobin 14.2 gm/dl (11.8-15.2); Lymphocytes # (Auto) 1.7 K/mm3 (1.2-5.4); Lymphocytes % (Auto) 23.2 % (13.4-35.0); Mean Corpuscular HGB Conc 33 % (32-34); Mean Corpuscular Hemoglobin 28 pg (28-32); Mean Corpuscular Volume 86 fl (84-94); Monocytes # (Auto) 0.6 K/mm3 (0.0-0.8); Monocytes % (Auto) 7.8 % (0.0-7.3); Platelet Count 267 K/mm3 (140-440); Red Blood Count 5.02 M/mm3 (3.65-5.03); Red Cell Distribution Width 12.7 % (13.2-15.2)
[2017-08-20] MEDS ORDERED: ZOFRAN IV ONE (22:07)
[2017-08-20 22:22] LABS: BUN/Creatinine Ratio 8; Blood Urea Nitrogen 6 mg/dL (9-20); Calcium 9.8 mg/dL (8.4-10.2); Hemolysis Index 23
[2017-08-20 22:23] LABS: Creatine Kinase MB 1.6 ng/mL (0.0-4.0)
[2017-08-20 23:19] LABS: Bilirubin,Urine NEG (Negative); Blood,Urine NEG (Negative); Color,Urine Yellow (Yellow); Mucus,Urine FEW /HPF; Protein,Urine <15 mg/dL mg/dL (Negative)
[2017-08-20 23:27] LABS: Amphetamine Screen,Urine PRESUMPTIVE NEGATIVE; Benzodiazepines Screen,Urine PRESUMPTIVE NEGATIVE; Cannabinoid Screen,Urine PRESUMPTIVE NEGATIVE; Methadone Screen,Urine PRESUMPTIVE NEGATIVE; Opiate Screen,Urine PRESUMPTIVE NEGATIVE
[2017-08-20 23:46] VITALS: BP 130/89
[2017-08-20 23:51] LABS: Cocaine Screen,Urine PRESUMPTIVE POSITIVE
== END 2017-08-21 00:02 | disposition home or self-care (01) ==
LOC: ED 21:23
DX: F41.9 Anxiety disorder, unspecified (principal); R07.89 Other chest pain; F14.10 Cocaine abuse, uncomplicated; F17.200 Nicotine dependence, unspecified, uncomplicated
CPT/HCPCS: 36415; 80048; 80307; 81001; 82550; 82553; 84484; 85025; 85379; 93005; 93010; 96361; 96374; 96375; 99284; G0480; J1200; J2405; J7030; 80320

== ENCOUNTER 2017-09-09 21:46 | Emergency (ER) | payer SELFPAY ==
[2017-09-09] MEDS ORDERED: ZOFRAN ODT ONE (22:03)
[2017-09-09] MEDS ORDERED: ASPIRIN PO ONE (22:11)
[2017-09-09] MEDS ORDERED: ZOFRAN ODT PO ONE (22:15)
[2017-09-09 22:28] LABS: Basophils # (Auto) 0.1 K/mm3 (0.0-0.1); Eosinophils # (Auto) 0.1 K/mm3 (0.0-0.4); Eosinophils % (Auto) 1.4 % (0.0-4.3); Hematocrit 41.4 % (35.5-45.6); Hemoglobin 13.3 gm/dl (11.8-15.2); Lymphocytes # (Auto) 1.2 K/mm3 (1.2-5.4); Lymphocytes % (Auto) 13.7 % (13.4-35.0); Mean Corpuscular HGB Conc 32 % (32-34); Mean Corpuscular Hemoglobin 28 pg (28-32); Mean Corpuscular Volume 85 fl (84-94); Monocytes # (Auto) 0.7 K/mm3 (0.0-0.8); Monocytes % (Auto) 7.9 % (0.0-7.3); Platelet Count 244 K/mm3 (140-440); Red Blood Count 4.85 M/mm3 (3.65-5.03); Red Cell Distribution Width 12.8 % (13.2-15.2)
[2017-09-09 22:34] LABS: BUN/Creatinine Ratio 19; Blood Urea Nitrogen 13 mg/dL (9-20); Calcium 9.1 mg/dL (8.4-10.2); Hemolysis Index 5
[2017-09-10 00:17] VITALS: BP 140/69
[2017-09-10 00:30] LABS: Bilirubin,Urine NEG (Negative); Blood,Urine NEG (Negative); Color,Urine Yellow (Yellow); Mucus,Urine FEW /HPF; Protein,Urine <15 mg/dL mg/dL (Negative); Urobilinogen,Urine < 2.0 mg/dL (<2.0)
[2017-09-10 00:38] LABS: Amphetamine Screen,Urine PRESUMPTIVE NEGATIVE; Benzodiazepines Screen,Urine PRESUMPTIVE NEGATIVE; Cannabinoid Screen,Urine PRESUMPTIVE NEGATIVE; Cocaine Screen,Urine PRESUMPTIVE NEGATIVE; Methadone Screen,Urine PRESUMPTIVE NEGATIVE; Opiate Screen,Urine PRESUMPTIVE NEGATIVE
[2017-09-10] MEDS ORDERED: ATIVAN PO ONE (01:41)
--- NOTE | 2017-09-10 01:46 | Emergency Department Report ---
ED General Adult HPI - General Chief complaint: Chest Pain Stated complaint: CHEST PAIN Time Seen by Provider: 09/10/17 01:10 Source: patient Mode of arrival: Ambulatory Limitations: No Limitations - History of Present Illness Initial comments: Third visit in the past month for this patient with complaint of chest pain and severe anxiety. He was evaluated initially one month ago after a brief first episode of use of cocaine, but was discharged after observation and with negative cardiac evaluation, negative stress test, and early repolarization on EKG. He was seen a week later with similar symptoms, stable, discharge, and in the interim. Has had a one-week hospitalization for anxiety at [facility], being discharged yesterday, with onset of symptoms that he presents with today, primarily of severe vertigo, along with symptoms suggestive of headache with migrainous qualities, with generalized discomfort, nausea, worsening by standing , and with a sensation of spinning in the room, and left chest discomfort, which he describes as pains in his heart. Despite patient's negative cardiac evaluation, he is still quite anxious about his heart, is concerned about a heart attack, and was not reassured by cardiology evaluation and negative results after hospitalization. Patient has vague history of persistent symptoms for approximately 5-10 years, with a distant history of pancreatitis, not related to alcohol use, but which has not been recurrent, as well as approximately annual occurrences of symptoms of vertigo which generally last for about for 5 days, for which she has had prior evaluations at different hospitals, and reports that nothing has ever been found. Severity scale (0 -10): 0 - Related Data Previous Rx's Medication Instructions Recorded Last Taken Type Ibuprofen [Motrin] 600 mg PO Q8H PRN #30 tablet 08/20/17 Unknown Rx hydrOXYzine PAMOATE [Vistaril] 50 mg PO Q6HR PRN #20 capsule 08/20/17 Unknown Rx Allergies Allergy/AdvReac Type Severity Reaction Status Date / Time No Known Allergies Allergy Unverified 08/19/17 06:00 ED Review of Systems ROS: Stated complaint: CHEST PAIN Other details as noted in HPI Comment: All other systems reviewed and negative Constitutional: malaise, other. denies: chills, diaphoresis, fever ENT: denies: ear pain, throat pain Respiratory: denies: cough, shortness of breath, SOB with exertion Cardiovascular: chest pain. denies: edema, syncope, paroxysmal nocturnal dyspnea Endocrine: no symptoms reported Gastrointestinal: abdominal pain, nausea, vomiting Musculoskeletal: denies: back pain, joint swelling, arthralgia Skin: denies: rash, lesions Neurological: headache (with photophobia) ED Past Medical Hx - Past Medical History Previous Medical History?: Yes Hx Congestive Heart Failure: No Hx Diabetes: No Hx Asthma: No Hx COPD: No Additional medical history: pancreatitis - Surgical History Past Surgical History?: No - Social History Smoking Status: Former Smoker Substance Use Type: Cocaine - Medications Home Medications: Home Medications Medication Instructions Recorded Confirmed Last Taken Type Ibuprofen [Motrin] 600 mg PO Q8H PRN #30 tablet 08/20/17 Unknown Rx hydrOXYzine PAMOATE [Vistaril] 50 mg PO Q6HR PRN #20 capsule 08/20/17 Unknown Rx ED Physical Exam - General Limitations: No Limitations - Psychiatric Psychiatric exam: Present: agitated (mildly, but not overtly hostile or psychotic), anxious (prominent baseline anxiety) - Skin Skin exam: Present: warm, dry, normal color. Absent: rash, abrasion, ecchymosis ED Course Vital Signs 09/09/17 09/10/17 22:02 00:16 Temperature 98.3 F 98.4 F Pulse Rate 78 74 Respiratory 18 18 Rate Blood Pressure 131/73 Blood Pressure 140/69 [Right] O2 Sat by Pulse 97 98 Oximetry ED Medical Decision Making - Lab Data Result diagrams: 09/09/17 22:13 09/09/17 22:13 - EKG Data -: EKG Interpreted by Me (normal ECG other than early repolarization) - Radiology Data Radiology results: report reviewed (normal CT brain) - Medical Decision Making Patient has clearcut findings of acute anxiety, with obsession over possible cardiac disease despite negative evaluation including normal stress at recent hospitalization last month. Patient is fairly resistant to reassurance, and although I medicated him acutely with lorazepam for anxiety, I don't believe this is appropriate for post-discharge treatment. Since he was recently hospitalized for same anxiety, he will need to continue his current Geodon and buspirone, and follow with his doctors for further care. - Differential Diagnosis chest wall pain, anxiety reaction, acute coronary syndrome Critical Care Time: No Critical care attestation.: If time is entered above; I have spent that time in minutes in the direct care of this critically ill patient, excluding procedure time. ED Disposition Clinical Impression: Anxiety reaction, Chest wall pain Disposition: DC-01 TO HOME OR SELFCARE Is pt being admited?: No Does the pt Need Aspirin: No Condition: Stable Instructions: Chest Pain (ED) Additional Instructions: Your physical examination, EKG and laboratory findings are all normal, and CT scan of brain was performed for evaluation of your headache, and this was also normal. Your symptoms are typical findings of acute stress reaction. We recommend that you continue your other medications as before, and follow with your primary care physician and follow with your psychiatrists and mental health counselors that you saw at [facility]. Referrals: PRIMARY CARE, [Primary Care Provider] - 3-5 Days Time of Disposition: 04:32
--- NOTE | 2017-09-12 14:26 | Cat Scan Report ---
FINAL REPORT EXAM: CT HEAD/BRAIN WO CON HISTORY: Headaches, vertigo. TECHNIQUE: Unenhanced axial CT images of the brain were obtained. No prior studies are available for comparison. FINDINGS: The cortical sulci and ventricles are within normal limits for patient's age. The tafoya-white differentiation is maintained. There is no extra-axial fluid collection, mass, mass effect, midline shift, hydrocephalus, or acute intracranial hemorrhage. The visualized paranasal sinuses and mastoid air cells are clear. There is no skull fracture or other osseous abnormality. The visualized orbits and globes are grossly unremarkable. IMPRESSION: No acute intracranial abnormality.
== END 2017-09-10 04:51 | disposition home or self-care (01) ==
LOC: ED 21:46 → EEVIPCON 21:46 → ED 09-10 04:51
DX: F41.1 Generalized anxiety disorder (principal); R07.89 Other chest pain
CPT/HCPCS: 36415; 70450; 80048; 80307; 81001; 84484; 85025; 93005; 93010; Q0162

== ENCOUNTER 2017-12-01 01:26 | Emergency (ER) | payer SELFPAY ==
[2017-12-01 01:34] VITALS: BP 91/73
--- NOTE | 2017-12-01 06:19 | Emergency Department Report ---
ED Anxiety HPI - General Chief Complaint: Anxiety Stated Complaint: ANXIETY Time Seen by Provider: 12/01/17 05:37 Source: patient Mode of arrival: Ambulatory - History of Present Illness Initial Comments: 22-year-old -[place] male with a past medical history of PTSD and anxiety and drug abuse comes in today reporting that he's been around people who were doing drugs tonight but he didn't do any now he is feeling very anxious. Patient wants to be checked to see if any epigastric in his system. Patient denies any pain just feels weird. Patient reports he has chest tightness butterfly feeling and palpitations. Patient cecile is currently taking Ativan and Adderall. Patient reports he is followed by [facility] on [address] Patient denies any suicidal or homicidal ideation. MD Complaint: anxiety, heart racing -: During the night Symptoms: chest pain (chest tightness), palpitations Place: other (while at a constitution party tonight) Previous History of Same: Yes Severity: mild Quality: intermittant, similar to prior episodes Provoking factors: emotional stress Improves With: rest Worsens With: thinking about event Associated symptoms: chest pain, palpitations - Related Data Home Medications: Previous Rx's Medication Instructions Recorded Last Taken Type Ibuprofen [Motrin] 600 mg PO Q8H PRN #30 tablet 08/20/17 Unknown Rx hydrOXYzine PAMOATE [Vistaril] 50 mg PO Q6HR PRN #20 capsule 08/20/17 Unknown Rx Allergies/Adverse Reactions: Allergies Allergy/AdvReac Type Severity Reaction Status Date / Time No Known Allergies Allergy Unverified 08/19/17 06:00 ED Review of Systems ROS: Stated complaint: ANXIETY Other details as noted in HPI Constitutional: denies: chills, fever Eyes: denies: eye pain, eye discharge, vision change Cardiovascular: chest pain (chest tightness), palpitations Neurological: denies: headache, weakness, paresthesias Psychiatric: anxiety. denies: auditory hallucinations, visual hallucinations, homicidal thoughts, suicidal thoughts ED Past Medical Hx - Past Medical History Previous Medical History?: Yes Hx Congestive Heart Failure: No Hx Diabetes: No Hx Psychiatric Treatment: Yes (PTSD) Hx Asthma: No Hx COPD: No Additional medical history: pancreatitis - Surgical History Past Surgical History?: No - Social History Smoking Status: Never Smoker - Medications Home Medications: Home Medications Medication Instructions Recorded Confirmed Last Taken Type Ibuprofen [Motrin] 600 mg PO Q8H PRN #30 tablet 08/20/17 Unknown Rx hydrOXYzine PAMOATE [Vistaril] 50 mg PO Q6HR PRN #20 capsule 08/20/17 Unknown Rx ED Physical Exam - General Limitations: No Limitations General appearance: alert, in no apparent distress - Head Head exam: Present: atraumatic, normocephalic - Eye Eye exam: Present: PERRL, EOMI - ENT ENT exam: Present: mucous membranes moist - Neck Neck exam: Present: full ROM - Respiratory Respiratory exam: Present: normal lung sounds bilaterally. Absent: respiratory distress - Cardiovascular Cardiovascular Exam: Present: tachycardia - Extremities Exam Extremities exam: Present: normal inspection, full ROM - Back Exam Back exam: Present: normal inspection, full ROM - Neurological Exam Neurological exam: Present: alert, oriented X3, normal gait - Psychiatric Psychiatric exam: Present: normal affect, normal mood - Skin Skin exam: Present: warm, dry, intact, normal color. Absent: rash ED Course Vital Signs 12/01/17 12/01/17 01:33 01:41 Temperature 98.4 F 98.4 F Pulse Rate 113 H 107 H Respiratory 20 26 H Rate Blood Pressure 91/73 91/73 O2 Sat by Pulse 98 97 Oximetry ED Medical Decision Making - Medical Decision Making Patient has been evaluated by this provider in fast track. UDS has been ordered. An urinalysis. UDS came back negative for all drugs. Urinalysis within normal limits. Critical care attestation.: If time is entered above; I have spent that time in minutes in the direct care of this critically ill patient, excluding procedure time. ED Disposition Clinical Impression: Anxiety Disposition: DC-01 TO HOME OR SELFCARE Is pt being admited?: No Does the pt Need Aspirin: No Condition: Stable Instructions: Anxiety (ED) Additional Instructions: Continue with her chronic medications such as Adderall and Ativan as prescribed by your [facility] provider. I recommended to follow up with your mental health provider in the next 3-5 days if symptoms persist or gets worse. Referrals: PRIMARY CARE, [Primary Care Provider] - 3-5 Days [facility] [Outside] - 3-5 Days Forms: Work/School Release Form(ED)
[2017-12-01 06:45] LABS: Bacteria,Urine 1+ /HPF (Negative); Bilirubin,Urine NEG (Negative); Blood,Urine NEG (Negative); Protein,Urine <15 mg/dL mg/dL (Negative); WBC,Urine < 1.0 /HPF (0.0-6.0)
[2017-12-01 06:48] LABS: Amphetamine Screen,Urine PRESUMPTIVE NEGATIVE; Benzodiazepines Screen,Urine PRESUMPTIVE NEGATIVE; Cannabinoid Screen,Urine PRESUMPTIVE NEGATIVE; Cocaine Screen,Urine PRESUMPTIVE NEGATIVE; Methadone Screen,Urine PRESUMPTIVE NEGATIVE; Opiate Screen,Urine PRESUMPTIVE NEGATIVE
[2017-12-01 06:50] LABS: Amorphous Crystals,Urine 3+; Color,Urine Yellow (Yellow); Mucus,Urine 3+ /HPF
== END 2017-12-01 07:08 | disposition home or self-care (01) ==
LOC: ED 01:26
DX: F41.9 Anxiety disorder, unspecified (principal); F43.10 Post-traumatic stress disorder, unspecified; Z79.899 Other long term (current) drug therapy
CPT/HCPCS: 80307; 81001; 99283